=== PATIENT | female | born 1990 | race American Indian/Alaskan Native ===

== ENCOUNTER 2022-01-04 23:32 | Outpatient (CLI) | payer SELFPAY ==
[2022-01-04] MEDS ORDERED: LACTATED RINGERS 500 ML IV ONE (23:54)
[2022-01-04 23:59] VITALS: BP 111/57
--- NOTE | 2022-01-08 08:22 | Ultrasound Report ---
ULTRASOUND OBSTETRIC LIMITED INDICATION / CLINICAL INFORMATION: well being, rule out abruption. Clinical Gestational Age (GA) in weeks, days: 21 weeks 5 days TECHNIQUE: Transabdominal. COMPARISON: None available. FINDINGS: HEART RATE (beats per minute): 141 AMNIOTIC FLUID INDEX (cm) = not measured (normal = 7-24 cm) PRESENTATION: Cephalic. ADDITIONAL FINDINGS: No evidence of placental abruption. IMPRESSION: 1. Single intrauterine gestation with active heart rate of 1 41 bpm. 2. No evidence of placental abruption. Signer Name: Ben Jules II, MD Signed: 01/05/2022 2:53 AM Workstation Name: [id number]
== END 2022-01-05 02:52 | disposition home or self-care (01) ==
LOC: TRG 23:32 → APU 23:42 → TRG 01-05 02:52
PROVIDERS: ATTEND Obstetrics & Gynecology
DX: O26.892 Other specified pregnancy related conditions, second trimester (principal); R10.9 Unspecified abdominal pain; Z3A.21 21 weeks gestation of pregnancy
CPT/HCPCS: 76815; 87086

== ENCOUNTER 2022-01-07 10:58 | Outpatient (CLI) | payer SELFPAY ==
[2022-01-07 11:30] VITALS: BP 108/58
[2022-01-07] MEDS ORDERED: LACTATED RINGERS 1,000 ML IV ONE (12:00)
[2022-01-07 12:20] LABS: Bacteria,Urine 1+ /HPF (Negative); Calcium Oxalate Crystals,Urine 1+; Mucus,Urine 1+ /HPF
[2022-01-07 12:32] LABS: Color,Urine Yellow (Yellow)
[2022-01-07 12:33] LABS: Bilirubin,Urine Negative (Negative); Urobilinogen,Urine < 2.0 mg/dL (<2.0)
[2022-01-07 13:20] LABS: Hematocrit 35.7 % (30.3-42.9); Mean Corpuscular HGB Conc 31 % (30-34); Mean Corpuscular Volume 80 fl (79-97); Platelet Count 260 K/mm3 (140-440); Red Blood Count 4.46 M/mm3 (3.65-5.03); Red Cell Distribution Width 15.7 % (13.2-15.2)
[2022-01-07 13:39] LABS: Alanine Aminotransferase 10 units/L (7-56); Albumin 3.4 g/dL (3.9-5); Blood Urea Nitrogen 11 mg/dL (7-17); Calcium 8.5 mg/dL (8.4-10.2); Hemolysis Index 9
[2022-01-07 13:43] LABS: BUN/Creatinine Ratio 16
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
== END 2022-01-07 13:48 | disposition home or self-care (01) ==
LOC: TRG 10:58 → APU 10:59 → TRG 13:48
PROVIDERS: ATTEND Obstetrics & Gynecology
DX: O36.8120 Decreased fetal movements, second trimester, not applicable or unspecified (principal); Z3A.22 22 weeks gestation of pregnancy
CPT/HCPCS: 36415; 76805; 80053; 81001; 85027

== ENCOUNTER 2022-03-14 00:52 | Outpatient (CLI) | payer BC ==
[2022-03-14 04:03] VITALS: BP 97/51
[2022-03-14] MEDS ORDERED: LACTATED RINGERS 500 ML IV ONE (06:21)
[2022-03-14] MEDS ORDERED: ACETAMINOPHEN 325 MG TAB PO ONE (08:01)
[2022-03-14 08:18] LABS: Hematocrit 31.1 % (30.3-42.9); Hemoglobin 9.8 gm/dl (10.1-14.3); Mean Corpuscular HGB Conc 32 % (30-34); Mean Corpuscular Volume 77 fl (79-97); Platelet Count 195 K/mm3 (140-440); Red Blood Count 4.03 M/mm3 (3.65-5.03)
[2022-03-14 08:28] LABS: Amphetamine Screen,Urine Negative; Benzodiazepines Screen,Urine Negative; Cannabinoid Screen,Urine Negative; Cocaine Screen,Urine Negative; Methadone Screen,Urine Negative; Opiate Screen,Urine Negative
[2022-03-14] MEDS ORDERED: LACTATED RINGERS 1,000 ML IV ONE (08:30)
[2022-03-14] MEDS ORDERED: ACETAMINOPHEN 500 MG TAB PO SCH (08:30)
[2022-03-14 08:34] LABS: Alanine Aminotransferase 7 units/L (7-56); Albumin 2.9 g/dL (3.9-5); Blood Urea Nitrogen 5 mg/dL (7-17); Calcium 8.7 mg/dL (8.4-10.2); Hemolysis Index 11
[2022-03-14 08:39] LABS: BUN/Creatinine Ratio 8
== END 2022-03-14 09:25 | disposition home or self-care (01) ==
LOC: TRG 00:52 → LD 00:53 → TRG 09:25
PROVIDERS: ATTEND Obstetrics & Gynecology
DX: O47.03 False labor before 37 completed weeks of gestation, third trimester (principal); O26.893 Other specified pregnancy related conditions, third trimester; R51.9 Headache, unspecified; O24.419 Gestational diabetes mellitus in pregnancy, unspecified control; Z3A.31 31 weeks gestation of pregnancy
CPT/HCPCS: 36415; 59025; 80053; 80307; 85027; 96360

== ENCOUNTER 2022-04-07 20:00 | Outpatient (CLI) | payer BC ==
[2022-04-07] MEDS ORDERED: LACTATED RINGERS 500 ML IV ONE (20:33)
--- NOTE | 2022-04-07 23:45 | Ultrasound Report ---
ULTRASOUND OBSTETRIC LIMITED ULTRASOUND BIOPHYSICAL PROFILE INDICATION / CLINICAL INFORMATION: decreased movement. Clinical Gestational Age (GA) in weeks, days: 34, 6 TECHNIQUE: Transabdominal. COMPARISON: 01/07/2022 FINDINGS: BREATHING MOVEMENT = 0 GROSS BODY MOVEMENT = 2 TONE = 2 QUALITATIVE AMNIOTIC FLUID VOLUME = 2 TOTAL BIOPHYSICAL SCORE = 6/8 HEART RATE (beats per minute): 137 AMNIOTIC FLUID INDEX (cm) = 18.6 (normal = 7-24 cm) PRESENTATION: Breech. ADDITIONAL FINDINGS: None. IMPRESSION: 1. Biophysical Score = 6/8 Signer Name: Reji Chicas DO Signed: 04/07/2022 11:41 PM Workstation Name: [id number]
[2022-04-08 05:34] VITALS: BP 127/71
== END 2022-04-07 22:50 | disposition home or self-care (01) ==
LOC: US 20:00 → APU 20:02 → US 22:50
PROVIDERS: ATTEND Obstetrics & Gynecology
DX: O36.8130 Decreased fetal movements, third trimester, not applicable or unspecified (principal); Z3A.34 34 weeks gestation of pregnancy
CPT/HCPCS: 76815; 76819

== ENCOUNTER 2022-04-22 05:37 | Inpatient (IN) | payer BC ==
[2022-04-22] MEDS ORDERED: LACTATED RINGERS 1,000 ML ONE (05:51)
[2022-04-22] MEDS ORDERED: METOCLOPRAMIDE 10 MG/2 ML INJ IV ONE (06:07)
[2022-04-22] MEDS ORDERED: BICITRA ORAL LIQD 30ML PO ONE (06:07)
[2022-04-22] MEDS ORDERED: FAMOTIDINE 20 MG/2 ML INJ IV ONE (06:07)
[2022-04-22] MEDS ORDERED: LACTATED RINGERS 1,000 ML IV SCH ×2 (06:15→16:45)
[2022-04-22] MEDS ORDERED: fentaNYL 100 MCG/2 ML INJ IV PRN (06:42)
[2022-04-22 06:58] LABS: Basophils % (Auto) 0.3 % (0.0-1.8); Eosinophils # (Auto) 0.1 K/mm3 (0.0-0.4); Eosinophils % (Auto) 0.7 % (0.0-4.3); Hematocrit 32.4 % (30.3-42.9); Hemoglobin 10.1 gm/dl (10.1-14.3); Lymphocytes # (Auto) 2.1 K/mm3 (1.2-5.4); Lymphocytes % (Auto) 22.8 % (13.4-35.0); Mean Corpuscular HGB Conc 31 % (30-34); Mean Corpuscular Volume 74 fl (79-97); Monocytes # (Auto) 0.9 K/mm3 (0.0-0.8); Monocytes % (Auto) 9.3 % (0.0-7.3); Platelet Count 204 K/mm3 (140-440); Red Blood Count 4.38 M/mm3 (3.65-5.03); Red Cell Distribution Width 17.6 % (13.2-15.2)
[2022-04-22] MEDS ORDERED: OXYTOCIN DRIP 30 UNITS/500 ML BAG IV SCH ×2 (07:00→10:00)
[2022-04-22] MEDS ORDERED: ceFAZolin/Water 2 GM/20 ML 2 GM/20 ML SYRINGE IV NR (07:00)
[2022-04-22] MEDS ORDERED: ACETAMINOPHEN 325 MG TAB PO PRN ×2 (07:00→10:00)
--- NOTE | 2022-04-22 07:12 | Anesthesia Day of Surgery ---
Anesthesia Day of Surgery - Day of Surgery Patient Examined: Yes Patient H&P Reviewed: Yes Patient is NPO: Yes
--- NOTE | 2022-04-22 07:17 | Anesthesia Consultation ---
Anesthesia Consult and Med Hx Date of service: 04/22/22 - Airway Anesthetic Teeth Evaluation: Poor ROM Head & Neck: Adequate Mental/Hyoid Distance: Adequate Mallampati Class: Class II Intubation Access Assessment: Good - Pulmonary Exam CTA: Yes - Cardiac Exam Cardiac Exam: RRR - Pre-Operative Health Status ASA Pre-Surgery Classification: ASA2 Proposed Anesthetic Plan: Spinal - Pulmonary Hx Smoking: No Hx Asthma: No - Cardiovascular System Hx Hypertension: No - Central Nervous System Hx Seizures: No Hx Psychiatric Problems: No - Endocrine Hx Renal Disease: No Hx Non-Insulin Dependent Diabetes: Yes Hx Hypothyroidism: No Hx Hyperthyroidism: No - Hematic Hx Anemia: No Hx Sickle Cell Disease: No - Other Systems Hx Alcohol Use: No Hx Obesity: Yes - Additional Comments Anesthesia Medical History Comments: csection x 3, cosmetic surgery. No anesthesia complications
--- NOTE | 2022-04-22 07:41 | History and Physical Report ---
History of Present Illness Date of examination: 04/22/22 Date of admission: 04/22/22 05:37 Chief complaint: Here for elective delivery at 37 wks. History of present illness: 37 wks. VALENTINE 05/13/22. Hx of demise at term. previous . Co-managed with MFM who recommended delivery at 37 wks. Requested tubal sterilization. Past History Past Surgical History: section, other (abdominoplasty.) - Obstetrical History Expected Date of Delivery: 05/13/22 Actual Gestation: 37 Week(s) 0 Day(s) : 4 Medications and Allergies Allergies Allergy/AdvReac Type Severity Reaction Status Date / Time No Known Allergies Allergy Verified 01/04/22 23:53 Active Meds: Active Medications Acetaminophen (Acetaminophen 325 Mg Tab) 650 mg PO Q4H PRN PRN Reason: Pain, Mild (1-3) Fentanyl (Fentanyl 100 Mcg/2 Ml Inj) 100 mcg IV Q2H PRN PRN Reason: Pain,Severe (7-10) LABOR PAIN Lactated Ringer's (Lactated Ringers) 1,000 mls @ 2,250 mls/hr IV PREOP MONICO Stop: 04/23/22 06:42 Last Admin: 04/22/22 06:20 Dose: 2,250 mls/hr Oxytocin/Sodium Chloride (Pitocin/Ns 30 Unit/500ml) 30 units in 500 mls @ 0 mls/hr IV TITR MONICO; Protocol Cefazolin Sodium (Ancef/Sterile Water 2 Gm/20 Ml) 2 gm in 20 mls @ 80 mls/hr IV PREOP NR; Protocol Stop: 04/22/22 08:00 Review of Systems All systems: negative - Vital Signs Vital signs: Vital Signs Pulse Pulse Ox 119 H 99 04/22/22 06:03 04/22/22 06:03 Temp Pulse Resp BP Pulse Ox 97.9 F 113 H 121/74 100 04/22/22 06:14 04/22/22 07:32 04/22/22 07:32 04/22/22 07:30 - Physical Exam Cardiovascular: Normal S1, Normal S2 Lungs: Positive: Normal air movement Abdomen: Positive: normal appearance, soft, distention, normal bowel sounds Uterus: Positive: enlarged, normal contour Extremities: Positive: normal Deep Tendon Reflex Grade: Normal +2 - Obstetrical FHR: category 1 Uterine Contraction Pattern: Absent Results Result Diagrams: 04/22/22 Unknown Abnormal lab results 04/22/22 Range/Units Unknown MCV 74 L (79-97) fl MCH 23 L (28-32) pg RDW 17.6 H (13.2-15.2) % Delta % (Auto) 9.3 H (0.0-7.3) % [place] # (Auto) 0.9 H (0.0-0.8) K/mm3 All other labs normal. Assessment and Plan - Patient Problems (1) 37 weeks gestation of Current Visit: Yes Status: Acute (2) Request for sterilization Current Visit: Yes Status: Acute (3) Previous delivery affecting Current Visit: Yes Status: Acute Plan to address problem: For elective repeat .
[2022-04-22] MEDS ORDERED: ePHEDrine SULFATE 50 MG/1 ML INJ ONE ×2 (08:15→08:25)
[2022-04-22] MEDS ORDERED: ONDANSETRON 4 MG/2 ML INJ ONE ×2 (08:15→08:25)
[2022-04-22] MEDS ORDERED: LACTATED RINGERS 2,000 ML ONE (09:41)
[2022-04-22] MEDS ORDERED: PROMETHAZINE 25 MG RECT SUPP PR PRN (10:00)
[2022-04-22] MEDS ORDERED: ONDANSETRON 4 MG/2 ML INJ IV PRN (10:00)
[2022-04-22] MEDS ORDERED: LANOLIN/ZINC/DIMETHICONE (LANSINOH) 7 GM TP PRN (10:00)
[2022-04-22] MEDS ORDERED: MORPHINE 2 MG/1 ML INJ IV PRN (10:00)
[2022-04-22] MEDS ORDERED: NALOXONE 0.4 MG/1 ML INJ IV PRN ×2 (10:00→11:51)
[2022-04-22] MEDS ORDERED: WITCH HAZEL/ GLYCERIN PAD TP PRN (10:00)
[2022-04-22] MEDS ORDERED: ceFAZolin/NS 1 GM/50 ML 1 GM/50 ML BAG IV SCH (10:00)
[2022-04-22] MEDS ORDERED: KETOROLAC 30 MG/1 ML INJ IV PRN (10:00)
[2022-04-22] MEDS ORDERED: IBUPROFEN 600 MG TAB PO PRN (10:00)
--- NOTE | 2022-04-22 10:15 | Progress Note ---
Spinal Anesthesia Block - Spinal Anesthesia Block Start Time: 07:55 Stop Time: 08:00 Performed by:: DL LITTLEJOHN Procedure: Patient IDed, H&P reviewed, all questions and concerns were answered, and consent was signed. Timeout was performed at bedside. Patient in sitting position. Sterile prep and drape was performed. [3] ml of 1% lidocaine skin wheal at L[3]- L [4]. Needle introducer advanced. 25 gauge spinal needle advanced. Clear, free flowing CSF. negative blood, negative paresthesia. Spinal dose given. All needles removed. Patient tolerated procedure.
--- NOTE | 2022-04-22 10:21 | Operative Report ---
Operative Report Operative Report: Date of surgery: April 22, 2022 Preoperative diagnoses: 37 weeks gestation, previous section, previous IUFD at 37 weeks gestation, voluntary request for tubal sterilization, peritoneal adhesions Postoperative diagnoses: The same. Operation: Lower segment transverse delivery, bilateral salpi ngectomies. Surgeon:Cecilia Mckinney MD Underwriting Internship: Corina Walters CRNA Anesthesia: Spinal block Quantitative blood loss: 1240 mL Complications: None Findings: There was a baby boy, 7 pounds 9 ounces, scores 6 and 7, cephalic presentation. Both ovaries and fallopian tubes were grossly normal. There were multiple dense bands of adhesions involving the greater omentum to the anterior parietal peritoneum as well as onto the right lateral aspect of the anterior uterus. The uterus itself was an otherwise unremarkable gravid structure. Procedure in detail: The patient was taken to the operating room and given a spinal block. Patient was placed in the straight supine position and a Wallis catheter was inserted. The patient was prepped in the abdomen. The drapes were placed. A timeout was done. With the go ahead from the direct marketing coordinator, a Pfannenstiel incision was made along a previously existing abdominoplasty scar. This incision was carried across the subcutaneous layer to the fascia which was also divided transversely. The recti abdominis muscle flaps were stripped from the fascia using a combination of blunt and sharp dissections. The muscles were in the midline to gain access to the anterior parietal peritoneum which was divided after excluding any underlying viscera. The access to the peritoneal cavity was then widened by manual stretching. The bladder blade was applied. The utero vesicle peritoneal flap was divided transversely allowing the bladder to be displaced caudally. The uterine incision was placed in the lower segment transversely. The uterine incision was carried to the decidual layer. The uterine incision was extended on both sides using the bandage scissors. The amniotic sac was ruptured with clear fluid. The head was lifted out of the false maternal pelvis and delivered through the incision using fundal pressure with assistance using the Kiwi. The airways were bulb suctioned beginning with the mouth. Continuing fundal pressure combined with traction on the mandibular processes of the jaw delivered the rest of the baby. The umbilical cord was double clamped and divided. The baby was carefully transferred to the pediatric team. The placenta was manually removed from the uterine cavity. The uterine cavity was explored and was empty of any placental remnants. The uterine incision was repaired in 2 layers with #1 Vicryl. The surgical line on the uterus was hemostatic. The peritoneal adhesions described were carefully isolated, double clamped and divided, and the pedicles were then tied off with #1 Vicryl. Hemostasis was satisfactory. Each fallopian tube was excised from fimbria to the cornual aspect of the uterus using the LigaSure. The specimens were submitted for histopathology. Hemosta sis was adequate. Blood and clots were cleared from the peritoneal cavity. The anterior parietal peritoneum was repaired with #1 Vicryl. The fascia was repaired with #1 Vicryl. The subcutaneous layer was made hemostatic using the Bovie before the skin was closed subcuticularly with 4-0 Vicryl. There were no complications. The quantitative blood loss was 1240 mL. All sponges and instrument counts were correct. Patient was safely transferred to the recovery room.
--- NOTE | 2022-04-22 10:50 | Progress Note ---
Regional Anesthesia Block - Regional Anesthesia Block Start Time: 10:36 Stop Time: 10:41 Performed By:: DL LITTLEJOHN Procedure: Patient consented for TAP block for post surgical pain management. Patient identified, monitors placed, and time out performed. TAP identified bilaterally via ultrasound. Skin prepped bilaterally with [chlorhexidine] and [22g stimuplex] needle advanced to the TAP. [Marcaine 0.25% 30ml Decadron 5mg] injected under ultrasound guidance on the [left] side. [Marcaine 0.25% 30ml Decadron 5mg] injected under ultrasound guidance on the [right] side. Negative aspiration every 5mL, No change in heart rate or rhythm. Patient tolerated the procedure well. No apparent complications seen.
[2022-04-22] MEDS: KETOROLAC 30 MG/1 ML INJ IV PRN ×2 (11:55→17:02)
[2022-04-22] MEDS: HYDROmorphone 1 MG/1 ML INJ IV PRN ×4 (12:09→22:34)
[2022-04-23 00:19] LABS: Hematocrit 29.3 % (30.3-42.9)
[2022-04-23] MEDS ORDERED: ceFAZolin/NS 1 GM/50 ML 1 GM/50 ML BAG IV SCH (02:00)
[2022-04-23] MEDS: HYDROcodone/ACETAMINOPHEN 5-325 MG TAB PO PRN (02:24)
[2022-04-23] MEDS: IBUPROFEN 800 MG TAB PO PRN (06:52)
[2022-04-23] MEDS: SIMETHICONE 80 MG CHEW TAB PO PRN ×2 (07:00→12:24)
[2022-04-23] MEDS: MORPHINE 4 MG/1 ML INJ IV PRN ×2 (07:22→18:02)
[2022-04-23] MEDS ORDERED: FLEET ENEMA PR NR (09:30)
[2022-04-23] MEDS: PRENATAL VIT27-FE FUMARATE-FOLIC ACID VIT TAB PO SCH (09:39)
[2022-04-23 10:26] LABS: Alanine Aminotransferase 12 units/L (7-56); Albumin 2.9 g/dL (3.9-5); BUN/Creatinine Ratio 13; Blood Urea Nitrogen 9 mg/dL (7-17); Calcium 8.7 mg/dL (8.4-10.2); Hemolysis Index 14
[2022-04-23 15:04] LABS: Basophils % (Auto) 0.3 % (0.0-1.8); Eosinophils % (Auto) 0.1 % (0.0-4.3); Hematocrit 28.6 % (30.3-42.9); Hemoglobin 8.7 gm/dl (10.1-14.3); Lymphocytes # (Auto) 1.5 K/mm3 (1.2-5.4); Lymphocytes % (Auto) 9.1 % (13.4-35.0); Mean Corpuscular HGB Conc 31 % (30-34); Mean Corpuscular Volume 74 fl (79-97); Monocytes % (Auto) 6.2 % (0.0-7.3); Platelet Count 203 K/mm3 (140-440); Red Blood Count 3.84 M/mm3 (3.65-5.03); Red Cell Distribution Width 17.8 % (13.2-15.2)
--- NOTE | 2022-04-23 15:10 | Post Anesthesia Evaluation ---
- Post Anesthesia Evaluation Patient Participated: Yes Airway Patent: Yes Stable Respiratory Function: Yes Nausea/Vomiting: No Temp > 96.8F: Yes Pain Manageable: Yes Adequeate Hydration: Yes Anesthesia Complications: No Block Receding Appropriately: Yes Patient on Ventilator: No
[2022-04-23] MEDS ORDERED: BENZOCAINE 20% TOP SPRAY 0.5 ML UNIT DOSE MM NR (19:00)
[2022-04-23] MEDS ORDERED: SODIUM CHLORIDE 0.9% 1000 ML 1,000 ML IV SCH (19:00)
--- NOTE | 2022-04-24 06:34 | Event Note ---
Date: 04/23/22 I rounded on patient at 0830 HRS 04/23/22. I forgot to enter the progress notes Patient's abdomen was bloated with gas. The incision was intact, with light pink soaking of her dressing. Instructed her RN Blossom to give her a fleet enema and encourage her to ambulate. Also a stat CMP was ordered.
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
[2022-04-24] MEDS: IBUPROFEN 800 MG TAB PO PRN ×2 (08:46→16:25)
[2022-04-24] MEDS: PRENATAL VIT27-FE FUMARATE-FOLIC ACID VIT TAB PO SCH (08:47)
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
--- NOTE | 2022-04-24 09:46 | Discharge Summary ---
Providers - Providers Date of Admission: 04/22/22 05:37 Date of discharge: 04/25/22 Attending physician: EVE NIXON MD Primary care physician: EVE NIXON MD Hospitalization Reason for admission: section Delivery: Procedure: repeat low transverse Episiotomy: none Laceration: none Incision: normal, dry, intact Other procedures: tubal ligation complications: none Discharge diagnosis: IUP at term delivered baby: male Condition at discharge: Good Disposition: 01 HOME / SELF CARE / HOMELESS - Discharge Diagnoses (1) 37 weeks gestation of Status: Resolved (2) Request for sterilization Status: Resolved (3) Previous delivery affecting Status: Resolved (4) Gestational diabetes Status: Resolved Qualifiers: Gestational diabetes mellitus control: diet-controlled Trimester: third trimester Qualified Code(s): O24.410 - Gestational diabetes mellitus in , diet controlled (5) Status post delivery Status: Acute Plan - Provider Discharge Summary Activity: routine, no sex for 6 weeks, no heavy lifting 4 weeks, no strenuous exercise Diet: routine Instructions: routine Additional instructions: [] Smoking cessation referral if applicable(refer to patient education folder for contact #) [] Refer to [facility]'s [facility] Booklet Call your doctor immediately for: * Fever > 100.5 * Heavy vaginal bleeding ( >1 pad per hour) * Severe persistent headache * Shortness of breath * Reddened, hot, painful area to leg or breast * Drainage or odor from incision. * Keep incision clean and dry at all times and follow doctor's instructions rega rding bathing/showering - Follow up plan Follow up: EVE NIXON MD [Primary Care Provider] - 7 Days
[2022-04-24] MEDS: HYDROcodone/ACETAMINOPHEN 5-325 MG TAB PO PRN (23:49)
[2022-04-25] MEDS: IBUPROFEN 800 MG TAB PO PRN (05:46)
[2022-04-25 12:52] VITALS: BP 112/58
== END 2022-04-25 12:35 | disposition home or self-care (01) | DRG 785 ==
LOC: APU 05:37 → OB 13:26
PROVIDERS: ADMIT Obstetrics & Gynecology; ATTEND Obstetrics & Gynecology
PROC: 10D00Z1 Extraction of Products of Conception, Low, Open Approach (ICD-10-PCS; principal; 2022-04-22)
PROC: 0UB70ZZ Excision of Bilateral Fallopian Tubes, Open Approach (ICD-10-PCS; 2022-04-22)
DX: O34.211 Maternal care for low transverse scar from previous cesarean delivery (principal); Z3A.37 37 weeks gestation of pregnancy; Z37.0 Single live birth; Z20.822 Contact with and (suspected) exposure to COVID-19; Z30.2 Encounter for sterilization; O24.429 Gestational diabetes mellitus in childbirth, unspecified control; O99.62 Diseases of the digestive system complicating childbirth; K66.0 Peritoneal adhesions (postprocedural) (postinfection)
CPT/HCPCS: 36415; 80053; 82962; 85014; 85018; 85025; 86850; 86900; 86901; 88302; G0378; J3490; J7121; J0690; J1170; J1885; J2270; J2405; J2765; J7030; J7120; U0003